=== PATIENT | male | born 1950 | race Caucasian/White ===

== ENCOUNTER → 2018-04-26 06:35 | Outpatient (CLI) | payer OTHER, MEDICARE ==
[2014-12-23 14:35] VITALS: BMI 40.5
[~2018-04-26 06:35] MED LIST: CELEBREX200 MG PO; CRESTOR5 MG PO; HYDROCHLOROTH12.5 M1 PO; MIRALAX17 GM PO; ZYRTEC10 MG PO
== END | disposition home or self-care (01) ==
LOC: D.US 06:35
DX: R74.0 Nonspecific elevation of levels of transaminase and lactic acid dehydrogenase [LDH] (principal)

== ENCOUNTER 2018-05-31 07:08 | Outpatient (CLI) | payer OTHER, MEDICARE ==
[~2018-05-31] VITALS: Ht 177.8 cm; Wt 127.3 kg
--- NOTE | ~2018-05-31 | HEMODYNAMI ---
PATIENT:GEMMA CHEN MEDICAL RECORD: [id number] : 50 [facility]ATION:[facility] ADMISSION DATE: 05/31/18 Generatedon:05/31/20189:43 Patient name: GEMMA CHEN Patient #: [id number] SSN: : 1950 Date of study: 05/31/2018 Page: Of Hemodynamic Procedure Report Patient Data Patient Demographics Procedure consent was obtained First Name: GEMMA Gender: Male Last Name: APRIL : 1950 Middle Initial: W Age: 67 year(s) Patient #: [id number] Race: Additional ID: [id number] Contact details Address: [address] [place] [address] [place] [place] [facility] Zip code: [address] Past Medical History History of disease Date Diagnosis Comments Hypertension Allergies Allergen Reaction Date Comments Reported Demerol 12/23/2014 Demerol 05/31/2018 Admission Admission Data Admission Date: 05/31/2018 Admission Time: 7:08 Height (in.): 70 BSA: 2.42 (m2) Height (cm.): 177.8 BMI: 40.75 (kg/m2) Weight (lbs.): 284 Weight (kg.): 128.82 Lab Results Lab Result Date: 05/31/2018 Lab Result Time: 0:00 Biochemistry Name Units Result Min Max BUN mg/dl 16 --(---*)-- 7 18 Creatinine mg/dl 1 --(--*-)-- 0.6 1.3 CBC Name Units Result Min Max Hemoglobin g/dl 14.2 --(*---)-- 13.5 17.5 Procedure Procedure Types Cath Procedure Diagnostic Procedure LHC [facility] w/Coronaries Sedation Charges Moderate Sedation up to 15 minutes Procedure Description Procedure Date Procedure Date: 05/31/2018 Procedure Start Time: 9:25 Procedure End Time: 9:42 Procedure Staff Name Function Liu Cadet MD Performing Physician Hannah Bennett RT Monitor Melissa Luna RT Scrub Nichole Rizo RN Nurse Procedure Data Cath Procedure Fluoroscopy Diagnostic fluoroscopy Total fluoroscopy Time: 3.3 time: 3.3 min min Diagnostic fluoroscopy Total fluoroscopy dose: 984 dose: 984 mGy mGy Contrast Material Contrast Material Type Amount (ml) Isovue 300 79 Entry Location Entry Primary Successful Side Size Upsize Upsize Entry Closure Rodgers ccessful Closure Location (Fr) 1 (Fr) 2 (Fr) Remarks Device Remarks Radial Right 6 Fr Mechanical artery Short Compression Estimated blood loss: 5 ml Diagnostic catheters Device Type Used For End Catheter Placement DIAGNOSTIC Rajan 110cm Procedure 5Fr catheter ([id number]) Procedure Complications No complications Procedure Medications Medication Administration Route Dosage 0.9% NaCl I.V. 100 ml/hr Oxygen etCO2 Nasal cannula 2 l/min Lidocaine 2% added to field 20 Heparin Flush Bag added to field 2 bags (1000units/500ml NS) Radial Cocktail added to field 1 syringe (Verapomil 2mg/Nitro 400mcg/Heparin 1500units) Versed I.V. 2 mg Fentanyl I.V. 50 mcg Versed I.V. 1 mg Fentanyl I.V. 25 mcg Hemodynamics Rest BSA: 2.42 (m2) HGB: 14.2 (g/dl) O2 Consumption: Estimated: 287.55 (ml/min) O2 Co nsumption indexed: Estimated:118.82 (ml/min/m) Heart Rate: 77 (bpm) Pressure Samples Time Site Value (mmHg) Purpose Heart Use Rate(bpm) 9:29 LV 145/6,12 Snapshot 98 Gradients Valve Time Site Site Mean SEP/DFP Peak To Heart Use 1 2 (mmHg) (sec/min) Peak Rate (mmHg) (bpm) Aortic 9:30 LV AO 84 Snapshots Pre Cath Intra NCS Post Cath Vital Signs Time Heart Resp SPO2 etCO2 NIBP (mmHg) Rhythm Pain Sedation Rate (ipm) (%) (mmHg) Status Level (bpm) 9:12:03 71 14 97 15.7 124/81(109) NSR 0 (11) 10(A) , No pain 9:16:24 80 18 98 21 140/84(107) NSR 0 (11) 10(A) , No pain 9:20:52 70 16 97 26.3 136/77(102) NSR 0 (11) 10(A) , No pain 9:25:16 91 16 98 20 122/83(94) NSR 0 (11) 10(A) , No pain 9:29:41 87 17 98 24.6 122/68(82) NSR 0 (11) 10(A) , No pain 9:34:03 93 15 96 23.7 108/74(90) NSR 0 (11) 10(A) , No pain 9:38:21 82 20 97 24.6 118/69(88) NSR 0 (11) 10(A) , No pain 9:42:41 86 27 98 2.9 109/77(97) NSR 0 (11) 10(A) , No pain Medications Time Medication Route Dose Verified Delivered Reason Notes Ef fectiveness by by 9:10:50 0.9% NaCl I.V. 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 2 mg Liu Nichole for Helio Rizo sedation RN 9:18:21 Fentanyl I.V. 50 mcg Liu Nichole for Helio Rizo sedation RN 9:28:02 Versed I.V. 1 mg Liu Nichole for Helio Rizo sedation RN 9:28:06 Fentanyl I.V. 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 8:56:55 Time tracking: Regular hours (M-F 7:00 - 5:00) 8:57:05 Plan of Care:Hemodynamics will remain stable., Cardiac rhythm will remain stable., Comfort level will be maintained., Respiratory function will remain adequate., Patient/ family verbilizes understanding of procedure., Procedure tolerated without complication., Recovers from procedure without complications.. 8:57:19 H&P Date Dictated: 05/28/2018 Within 30 days and on chart., H&P Addendum completed by physician on day of procedure. (MUST COMPLETE FOR ALL OUTPATIENTS). 8:57:29 Patient allergic to Demerol 8:57:39 Patient Height : 70 inches 8:57:43 Patient Weight : 284 lbs 9:00:04 Melissa Counts RT(R) sent for patient. Start room use. 9:04:15 Lab Result : Creatinine 1 mg/dl 9:04:15 Lab Result : BUN 16 mg/dl 9:04:15 Lab Result : Hemoglobin 14.2 g/dl 9:04:54 Patient received from Pre/Post Procedure Room to CCL 1 Alert and oriented. Tansferred to table in Supine position. 9:04:57 Warm blankets applied, and joycelyn hugger turned on for patient comfort. 9:04:57 Correct patient and procedure confirmed by team. 9:04:57 ECG and BP/O2 sat monitors applied to patient. 9:10:41 Vital chart was started 9:10:50 0.9% NaCl 100 ml/hr I.V. was administered by Nichole Rizo RN; used for procedure; 9:10:58 Oxygen 2 l/min etCO2 Nasal cannula was administered by Nichole Rizo RN; used for procedure; 9:11:04 Lidocaine 2% 20ml vial added to field was administered by Liu Cadet MD; for local anesthetic; 9:11:11 Heparin Flush Bag (1000units/500ml NS) 2 bags added to field was administered by Liu Cadet MD; used for procedure; 9:12:59 Radial Cocktail (Verapomil 2mg/Nitro 400mcg/Heparin 1500units) 1 syringe added to field was administered by Liu Cadet MD; used for procedure; 9:16:28 Baseline sample Acquired. 9:16:29 Full Disclosure recording started 9:16:29 Pre-procedure instructions explained to patient. 9:16:30 Pre-op teaching completed and patient verbalized understanding. 9:16:32 Family in patients room. 9:16:33 Patient NPO since Midnight. 9:16:36 Is the patient allergic to Iodine/contrast media? No. 9:16:37 Is patient on blood thinner?Yes 9:16:54 ELIQUIS HELD SINCE . 9:17:05 Patient diabetic? No. 9:17:15 Previous problem with sedation/anesthesia? No ? 9:17:17 Snore? Yes 9:17:18 Sleep apnea? Yes 9:17:18 Deviated septum? No 9:17:19 Opens mouth fully? Yes 9:17:20 Sticks out tongue? Yes 9:17:21 Airway obstruction? No ? 9:17:23 Dentures? No ? 9:17:24 Modified Jean's test Ulnar < 7 seconds 9:17:30 Patient pain scale 0/10 ?. 9:17:36 IV patent on arrival in left hand with 0.9% NaCl at O. 9:17:37 Lab results completed and on chart. 9:17:40 Right Radial & Right Groin area was prepped with chlora-prep and draped in sterile fashion 9:17:41 Alarms reviewed by R. N. 9:17:41 Sharps counted by scrub and verified by R.N. 9:17:44 --------ALL STOP TIME OUT------ 9:17:44 Final Timeout: patient, procedure, and site verified with staff and physician. All members of the team are in agreement. 9:17:46 Right Radial & Right Groin site verified by team. 9:17:49 Physical assessment completed. ASA score P 2 - A patient with mild systemic disease as per Liu Cadet MD. 9:17:52 Sedation plan: IV Moderate Sedation Medication:Versed, Fentanyl 9:17:57 Use device set Radial Dx or PCI 9:17:58 ACIST Syringe (31380) opened to sterile field. 9:18:00 ACIST Hand Control (02982) opened to sterile field. 9:18:00 ACIST Manifold (31542) opened to sterile field. 9:18:01 Tegaderm 4 x 4 (1626W) opened to sterile field. 9:18:02 Medline Cath Pack ([id number]) opened to sterile field. 9:18:05 Bag Decanter (2001S) opened to sterile field. 9:18:05 DIAGNOSTIC WIRE .035 260cm J wire (412600) opened to sterile field. 9:18:06 MBrace Wrist Support ([id number]) opened to sterile field. 9:18:07 SHEATH 6Fr Prelude Radial ([id number]) opened to sterile field. 9:18:12 Versed 2 mg I.V. was administered by Nichole Rizo RN; for sedation; 9:18:21 Fentanyl 50 mcg I.V. was administered by Nichole Rizo RN; for sedation; 9:24:13 Zero performed for pressure channel P1 9::29 Procedure started. 9:24:43 Rhythm: atrial fibrillation 9:25:09 Local anesthetic to right radial artery with Lidocaine 2% by Liu Cadet MD.INITIAL ACCESS ONLY 9:26:48 A 6 Fr Short sheath was inserted into the Right Radial artery 9::23 A DIAGNOSTIC Rajan 110cm 5Fr catheter ([id number]) was advanced over the wire and used for Procedure. 9:28:02 Versed 1 mg I.V. was administered by Nichole Rizo RN; for sedation; 9::06 Fentanyl 25 mcg I.V. was administered by Nichole Rizo RN; for sedation; 9::26 LV gram done using GATES 9::28 Injector settings: Ml/sec: 7, Volume: 15, 9:29:30 LV hemodynamics recorded. 9::44 EF : 60 % 9:31:26 LCA angiography performed. 9:37:30 RCA angiography performed. 9:38:21 Catheter removed. 9:38:44 Procedure ended.(Physican Out) 9:39:21 TR BAND Large ([id number]) opened to sterile field. 9:39:32 Sheath removed intact; hemostasis achieved with Mechanical Compression to the Right Radial artery. 9:40:36 Fluoroscopy time 03.30 minutes. 9:40:53 Fluoroscopy dose: 984 mGy 9:40:53 Flurop Dose total: 984 9:40:56 Contrast amount:Isovue 300 79ml. 9:40:58 Sharps counted by scrub and verified by R.N. 9:41:01 TR band inflated with 14cc of air. 9:41:54 Post-procedure physical assessment completed. ASA score P 2 - A patient with mild systemic disease as per Liu Cadet MD. 9:41:58 Post procedure rhythm: atrial fibrillation 9:42:00 Estimated blood loss: 5 ml 9:42:02 Post procedure instruction explained to patient.Patient verbalizes understanding. 9:42:02 Patient needs reinforcement of post procedure teaching. 9:42:22 Procedure type changed to Cath procedure, Diagnostic procedure, LHC, LHC w/Coronaries, Sedation Charges, Moderate Sedation up to 15 minutes 9:42:37 Procedure and supply charges have been captured, reviewed, submitted and are correct. 9:42:43 Procedure Complication : No complications 9:42:46 Vital chart was stopped 9:42:46 See physician's report for complete and final results. 9:42:48 Report given to Pre/Post Procedure Room. 9:42:51 Patient transfered to Pre/Post Procedure Room with Bed. 9:42:53 Procedure ended. 9:42:53 Full Disclosure recording stopped 9:42:56 End room use (Document Last) Device Usage Item Name Manufacture Quantity Catalog Number Hospital Part Current M inimal Lot# / Charge Number Stock Stock Serial# Code ACIST Syringe Acist 1 67897 784845 187197 949058 2 0 (91582) [employer] ACIST Hand Acist 1 42867 622840 270073 372292 5 Control (13297) [employer] ACIST Manifold Acist 1 73541 993492 069817 403961 5 (35751) [employer] Tegaderm 4 x 4 3M 1 1626W 221934 694007 646960 5 (1626W) Medline Cath Medline 1 [id number] 993523 81309 273556 5 Pack ([id number]) Bag Decanter Microtek 1 2001S 358163 28896 723756 5 (2001S) [employer] Inc. DIAGNOSTIC WIRE [facility] [place] 1 992720 200545 026614 471835 3 0 .035 260cm J wire (132992) MBrace Wrist Advanced 1 140-0250-00 733655 05234 530820 5 Support Vascular ([id number]) Dynamics SHEATH 6Fr Merit 1 [id number] 973087 129530 540824 5 Prelude Radial Medical ([id number]) DIAGNOSTIC Terumo 1 40-4664 320174 655005 690828 5 Rajan 110cm 5Fr catheter (535980) TR BAND Large Terumo 1 [id number] 540102 191192 906661 4 0 ([id number]) Signature Audit [place] Stage Time Signature Unsigned Intra-Procedure 05/31/2018 Hannah Bennett 9:43:37 AM RT(R) Signatures Monitor : Hannah Bennett Signature : RT Date : Time : [address] [address]
[2018-05-31] MEDS ORDERED: BETAPACE 80 MG80 MG PO (07:39)
[2018-05-31] MEDS ORDERED: LISINOPRIL10 MG PO (07:39)
[2018-05-31] MEDS ORDERED: HYDROCHLOROTH12.5 M1 PO (07:40)
[2018-05-31] MEDS ORDERED: FLOMAX0.4 MG PO (07:40)
[2018-05-31] MEDS ORDERED: ELIQUIS5 MG PO (07:40)
[2018-05-31] MEDS ORDERED: FLUVOXAMINE MAL50 MG PO (07:42)
[2018-05-31 07:53] VITALS: BP 118/69; Ht 177.8 cm; Wt 127.3 kg
[2018-05-31 08:00] LABS: BASOPHILS 0.8 % (0-2); HEMATOCRIT 40.8 % (42.0-54.0); HEMOGLOBIN 14.2 g/dL (13.5-17.5); LYMPHOCYTES 20.6 % (15-50); MCH 31.5 pg (26.0-34.0); MCHC 34.8 g/dL (31.0-37.0); MCV 90.5 fL (80.0-100.0); MEAN PLATELET VOLUME 9.5 fL (7.4-10.4); MONOCYTES 13.2 % (2-11); NEUTROPHILS 62.4 % (40-80); PLATELET COUNT 175 10x3/uL (130-400); RBC 4.51 10x6/uL (4.20-6.10); RDW 12.6 % (11.5-14.5)
[2018-05-31 08:11] LABS: CALC OSMOLALITY 285 mosm/kg (275-300); CARBON DIOXIDE 29.2 mmol/L (21.0-32.0); CHLORIDE - SERUM 106 mmol/L (98-107); GLUCOSE 142 mg/dL (74-106); POTASSIUM - SERUM 4.4 mmol/L (3.5-5.1); SODIUM 142 mmol/L (136-145); UREA NITROGEN 16 mg/dL (7-18); eGFR NON AFRICAN AMERICAN 79 mL/min (90-120)
== END 2018-05-31 12:45 | disposition home or self-care (01) ==
LOC: D.CATH 07:08
PROVIDERS: Internal Medicine Cardiovascular Disease
DX: I48.91 Unspecified atrial fibrillation (principal); I20.9 Angina pectoris, unspecified; R94.39 Abnormal result of other cardiovascular function study

== ENCOUNTER → 2018-06-26 10:30 | Outpatient (CLI) | payer OTHER, MEDICARE ==
[2018-05-31 07:53] VITALS: BMI 40.2
[~2018-06-26 10:30] MED LIST changes: +BETAPACE 80 MG80 MG PO; +ELIQUIS5 MG PO; +FLOMAX0.4 MG PO; +FLUVOXAMINE MAL50 MG PO; +LISINOPRIL10 MG PO
== END | disposition home or self-care (01) ==
LOC: D.HCCARDIO 10:30
DX: I25.10 Atherosclerotic heart disease of native coronary artery without angina pectoris (principal)

== ENCOUNTER 2019-02-27 11:14 | Outpatient (CLI) | payer OTHER, MEDICARE ==
[2018-05-31 07:53] VITALS: BMI 40.2
--- NOTE | 2019-02-27 11:42 | NUR ---
EKG COMPLETED AND PT IN NSR, WILL NOTIFY DR GUPTA FOR FURTHER INSTRUCTION.
[2019-02-27] MEDS ORDERED: ULTRAM50 MG PO (11:51)
--- NOTE | 2019-02-27 13:05 | NUR ---
DR. GUPTA ROUNDED AND REVIEWED EKG. PT IN [place] A. PROCEDURE CANCELLED PER DR. GUPTA. NOTIFIED BRICK TOSSER. PT DRESSED SELF AND AMBULATED TO THE VEHICLE. ALL BELONGINGS IN HAND.
== END 2019-02-27 13:00 | disposition home or self-care (01) ==
LOC: D.CATH 11:14
PROVIDERS: ATTEND Internal Medicine Cardiovascular Disease
DX: I48.91 Unspecified atrial fibrillation (principal); Z53.8 Procedure and treatment not carried out for other reasons; Z01.812 Encounter for preprocedural laboratory examination

== ENCOUNTER → 2019-05-21 08:37 | Outpatient (CLI) | payer OTHER, MEDICARE ==
[2018-05-31 07:53] VITALS: BMI 40.2
[~2019-05-21 08:37] MED LIST changes: +CRESTOR5 MG; +HYDROCODON-ACE1 EAC7 PO; +ULTRAM50 MG PO
== END | disposition home or self-care (01) ==
LOC: D.US 08:37
PROVIDERS: ATTEND Internal Medicine Cardiovascular Disease
DX: R93.89 Abnormal findings on diagnostic imaging of other specified body structures (principal); I65.21 Occlusion and stenosis of right carotid artery

== ENCOUNTER 2019-07-01 14:50 | Emergency (ER) | payer OTHER, MEDICARE ==
[2018-05-31 07:53] VITALS: Ht 177.8 cm; Wt 120.5 kg
[~2019-07-01] VITALS: Ht 177.8 cm; Wt 120.5 kg
[~2019-07-01 14:50] MED LIST changes: -CRESTOR5 MG; -HYDROCODON-ACE1 EAC7 PO
[2019-07-01] MEDS ORDERED: CRESTOR5 MG (14:58)
[2019-07-01] MEDS ORDERED: HYDROCODON-ACE1 EAC7 PO (16:30)
[2019-07-01 16:35] VITALS: BP 125/70
== END 2019-07-01 16:35 | disposition home or self-care (01) ==
LOC: D.ER 14:50
DX: R51 Headache (principal); M54.2 Cervicalgia; V89.2XXA Person injured in unspecified motor-vehicle accident, traffic, initial encounter; Y93.9 Activity, unspecified; Y92.9 Unspecified place or not applicable

== ENCOUNTER → 2020-03-02 08:45 | Outpatient (CLI) | payer MEDICARE, OTHER ==
[2019-07-01 14:57] VITALS: BMI 38.1
[~2020-03-02 08:45] MED LIST changes: +CRESTOR5 MG; +HYDROCODON-ACE1 EAC7 PO
== END | disposition home or self-care (01) ==
LOC: D.HCCECHO 08:45
PROVIDERS: ATTEND Internal Medicine Cardiovascular Disease
DX: I10 Essential (primary) hypertension (principal)

== ENCOUNTER → 2020-11-09 08:51 | Outpatient (CLI) | payer MEDICARE, OTHER ==
[2020-11-09 09:54] LABS: BASOPHILS 0.5 % (0-2); EOSINOPHILS 3.1 % (0-7); HEMATOCRIT 44.4 % (42.0-54.0); HEMOGLOBIN 15.2 g/dL (13.5-17.5); IMMATURE GRANULOCYTES 0.2 % (0-5); LYMPHOCYTE ABS# 0.82 10x3/uL (1.32-3.57); LYMPHOCYTES 19.8 % (15-50); MCH 31.8 pg (26.0-34.0); MCHC 34.2 g/dL (31.0-37.0); MCV 92.9 fL (80.0-100.0); MEAN PLATELET VOLUME 9.8 fL (7.4-10.4); MONOCYTES 13.8 % (2-11); NEUTROPHIL ABS# 2.59 10x3/uL (1.78-5.38); NEUTROPHILS 62.6 % (40-80); PLATELET COUNT 199 10x3/uL (130-400); RBC 4.78 10x6/uL (4.20-6.10); RDW 12.4 % (11.5-14.5); WBC 4.1 10x3/uL (4.8-10.8)
[2020-11-09 10:32] LABS: ALBUMIN 3.5 g/dL (3.4-5.0); ALKALINE PHOSPHATASE 67 U/L (30-120); ALT (SGPT) 121 U/L (10-68); BILIRUBIN - TOTAL 1.14 mg/dL (0.2-1.3); CALC OSMOLALITY 278 mosm/kg (275-300); CALCIUM 8.5 mg/dL (8.5-10.1); CARBON DIOXIDE 23.4 mmol/L (21.0-32.0); CHLORIDE - SERUM 105 mmol/L (98-107); CREATININE - SERUM 0.9 mg/dL (0.6-1.3); GLUCOSE 152 mg/dL (74-106); POTASSIUM - SERUM 4.3 mmol/L (3.5-5.1); PROTEIN - SERUM 7.2 g/dL (6.4-8.2); SODIUM 137 mmol/L (136-145); UREA NITROGEN 18 mg/dL (7-18); eGFR NON AFRICAN AMERICAN 89 mL/min (90-120)
[2020-11-11 11:11] LABS: PROTEIN S - FREE 114 % (57-157); PROTEIN S - FUNCTIONAL 115 % (63-140); PROTEIN S - TOTAL 84 % (60-150)
== END | disposition home or self-care (01) ==
LOC: D.LAB 08:51
PROVIDERS: Internal Medicine Hematology & Oncology
DX: I82.491 Acute embolism and thrombosis of other specified deep vein of right lower extremity (principal); C61 Malignant neoplasm of prostate; D68.69 Other thrombophilia